=== PATIENT | female | born 1960 | race African-American/Black ===

== ENCOUNTER 2016-11-17 16:33 | Emergency (ER) | payer MEDICARE, OTHER ==
[2016-11-17 16:15] LABS: INFLUENZA A NEG (NEG); INFLUENZA B NEG (NEG)
[~2016-11-17 16:33] MED LIST: ACCUPRIL PO; ALBUTEROL17 GM INH; AMBIEN PO; AMBIEN10 MG PO; AMLODIPINE BESY10 MG PO; ANIMAL SHAPES1 EAC2 PO; ASPIRIN; AUGMENTIN PO; BACLOFEN10 MG PO; BENTYL20 MG PO; CALCIUM 500 +1 EAC2 PO; CARAFATE1 GM PO; CARDIZEM CD; CYMBALTA PO; CYMBALTA30 MG PO; DOXYCYCLINE PO; FERRO-TIME325 MG PO; FERROUS GLUCON325 M1 PO; FERROUS SULFATE PO; FLAGYL PO; FLONASE16 GM; FOLIC ACID PO; FOLIC ACID1 MG PO; GUAIFENESIN LA600 M1 PO; HCTZ; HCTZ PO; HYDROCHLOROTHIA25 MG PO; KCL PO; LEVAQUIN PO; LISINOPRIL PO; LISINOPRIL10 MG PO; LOPRESSOR PO; LORTAB 7.5-5001 TAB PO; MEDROL PO; METOPROLOL SUCC25 MG PO; MULTI VITAMIN1 EACH PO; MULTI-VITAMIN1 TAB PO; NORCO 5/325 TAB1 TAB PO; NORCO 7.5/325 T1 TAB PO; OMEPRAZOLE20 M2 PO; PAIN RELIEVER500 M4 PO; PHENERGAN PO; PHENERGAN25 M1 PO; PHENERGAN25 MG PO; POTASSIUM CHLO10 ME1 PO; PREDNISONE50 MG PO; PRILOSEC PO; PRILOSEC20 MG PO; PRINIVIL40 MG PO; PROTONIX PO; TOPROL XL PO; TYLENOL #3 PO; VICODIN PO; VITAMIN B-121000 MC1 SL; VITAMIN D1000 UNI1 PO; VOLTAREN75 MG PO; ZESTRIL40 MG PO; ZOFRAN ODT4 MG PO; ZYRTEC10 M2 PO; [UNRECOGNIZED DRUG - OTHER] PO
== END 2016-11-17 16:50 | disposition home or self-care (01) ==
LOC: CFTX 16:33
DX: J06.9 Acute upper respiratory infection, unspecified (principal); I10 Essential (primary) hypertension; F17.210 Nicotine dependence, cigarettes, uncomplicated; Z90.49 Acquired absence of other specified parts of digestive tract; Z98.890 Other specified postprocedural states
CPT/HCPCS: 87651; 87804; 99283